=== PATIENT | female | born 1990 | race Caucasian/White ===

== ENCOUNTER → 2016-06-09 | Outpatient (CLI) | payer MEDICAID | LOC: MW.CHOBGYN 15:03 | PROVIDERS: ATTEND Obstetrics & Gynecology | DX: Z32.00 Encounter for pregnancy test, result unknown (principal) | CPT/HCPCS: 81025 ==

== ENCOUNTER → 2016-06-30 | Outpatient (CLI) | payer MEDICAID | LOC: MW.CHOBGYN 09:07 | PROVIDERS: ATTEND Obstetrics & Gynecology | DX: Z34.90 Encounter for supervision of normal pregnancy, unspecified, unspecified trimester (principal) | CPT/HCPCS: 81003; 87480; 87491; 87510; 87591; 87660; G0145 ==

== ENCOUNTER 2017-01-13 07:42 | Inpatient (IN) | payer MEDICAID ==
[2017-01-13] MEDS ORDERED: Docusate Sodium 100 MG Cap PO PRN (08:03)
[2017-01-13] MEDS ORDERED: Acetaminophen 500 MG Tab PO PRN ×2 (08:03)
[2017-01-13] MEDS ORDERED: Ibuprofen 400 MG Tab PO PRN (08:03)
[2017-01-13] MEDS ORDERED: Lanolin 100% Cream 7 GM Tube TOP PRN (08:03)
[2017-01-13] MEDS ORDERED: Benzocaine/Menthol 20%-0.5% Spray 78 GM Cannister TOP PRN (08:03)
[2017-01-13] MEDS ORDERED: oxyCODONE 5 MG Tab PO PRN (08:03)
[2017-01-13] MEDS ORDERED: Witch Hazel Medicated Pads 40/Jar TOP PRN (08:03)
[2017-01-13] MEDS ORDERED: Bisacodyl 10 MG Supp RECTAL PRN (08:03)
--- NOTE | 2017-01-13 08:13 | PCM.LDHP ---
L&D History of Present Illness - General Date of Service: 01/13/17 Admit Problem/Dx: Patient Status Order with Admit Dx/Problem 01/13/17 08:03 Patient Status [ADT] Routine Admission Diagnosis/Problem Admission Diagnosis/Problem Source of Information: Patient History Limitations: Reports: No Limitations - History of Present Illness Improves with: Reports: None Worsens with: Reports: None Associated Symptoms: Reports: N - Related Data Allergies/Adverse Reactions: Allergies Allergy/AdvReac Type Severity Reaction Status Date / Time Penicillins Allergy Anaphylactic Verified 08/20/13 20:50 Shock Home Medications: Home Meds Acetaminophen [Tylenol Extra Strength] 500 mg PO Q4H PRN #1 tab 09/06/13 [Rx] Lanolin [Lansinoh HPA] 40 gm TOP ASDIRECTED PRN #1 crm 09/06/13 [Rx] Past Medical History - Past Health History Medical/Surgical History: Denies 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: Musculoskeletal History: Reports: Fracture Neurological History: Reports: Migraines - Infectious Disease History Infectious Disease History: Reports: Chicken Pox Social & Family History - Family History Cardiac: Reports: Hypertension, [place] Respiratory: Reports: Asthma GI: Reports: Cholelithiasis OBGYN: Reports: Neurological: Reports: Migraines Psychiatric: Reports: Anxiety, Bipolar, Depression Dermatologic: Reports: Eczema Oncologic: Reports: Colon, Pancreatic - Tobacco Use Smoking Status *Q: Never Smoker Second Hand Smoke Exposure: No - Recreational Drug Use Recreational Drug Use: No H&P Review of Systems - Review of Systems: Review Of Systems: See Below General: Reports: No Symptoms HEENT: Reports: No Symptoms Pulmonary: Reports: No Symptoms Cardiovascular: Reports: No Symptoms Gastrointestinal: Reports: No Symptoms Genitourinary: Reports: No Symptoms Musculoskeletal: Reports: No Symptoms Skin: Reports: No Symptoms Psychiatric: Reports: No Symptoms Neurological: Reports: No Symptoms Hematologic/Lymphatic: Reports: No Symptoms Immunologic: Reports: No Symptoms L&D Exam - Exam Exam: See Below - Vital Signs Weight: 70.76 kg - Exam General: Alert, Oriented HEENT: PERRLA, Conjunctiva Clear, EACs Clear, EOMI, Hearing Intact, Mucosa Moist & Levasy, Nares Patent, Normal Nasal Septum, Posterior Pharynx Clear, TMs Clear Neck: Supple, Trachea Midline Lungs: Clear to Auscultation, Normal Respiratory Effort Cardiovascular: Regular Rate, Regular Rhythm GI/Abdominal Exam: Normal Bowel Sounds, Soft, Non-Tender, No Organomegaly, No Distention, No Abnormal Bruit, No Mass, Pelvis Stable Rectal Exam: Normal Exam, Normal Rectal Tone Genitourinary: Normal external exam, Normal bimanual exam, Normal speculum exam Back Exam: Normal Inspection, Full Range of Motion Extremities: Normal Inspection, Normal Range of Motion, Non-Tender, No Pedal Edema, Normal Capillary Refill Skin: Warm, Dry, Intact Neurological: Cranial Nerves Intact, Reflexes Equal Bilateral Psychiatric: Alert, Normal Affect, Normal Mood Problem List Initiated/Reviewed/Updated: Yes Orders Last 24hrs: Active Orders 24 hr Category Date Time Status Patient Status [ADT] Routine ADT 01/13/17 08:03 Ordered May Shower [RC] ASDIRECTED Care 01/13/17 08:03 Ordered Up ad Leticia [RC] ASDIRECTED Care 01/13/17 08:03 Ordered Vital Signs [RC] PER UNIT ROUTINE Care 01/13/17 08:03 Ordered HEMOGLOBIN/HEMATOCRIT,HH [HEME] Timed Lab 01/14/17 05:11 Ordered Acetaminophen [Tylenol Extra Strength] Med 01/13/17 08:03 Ordered 1,000 mg PO Q4H PRN Acetaminophen [Tylenol Extra Strength] Med 01/13/17 08:03 Ordered 500 mg PO Q4H PRN Benzocaine/Menthol [Dermoplast Pain Relief 20%-0.5% Med 01/13/17 08:03 Ordered [place]] 78 gm TOP ASDIRECTED PRN Bisacodyl [Dulcolax] Med 01/13/17 08:03 Ordered 10 mg RECTAL .ONCE PRN Docusate Sodium [Colace] Med 01/13/17 08:03 Ordered 100 mg PO BID PRN Ibuprofen [Motrin] Med 01/13/17 08:03 Ordered 400 mg PO Q4H PRN Ibuprofen [Motrin] Med 01/13/17 08:03 Ordered 800 mg PO Q6H PRN Lanolin [Lansinoh HPA] Med 01/13/17 08:03 Ordered See Dose Instructions TOP ASDIRECTED PRN Witch Kelsey [Tucks] Med 01/13/17 08:03 Ordered 1 pad TOP ASDIRECTED PRN oxyCODONE Med 01/13/17 08:03 Ordered 5 mg PO Q2H PRN Assess Lochia [WOMSER] Per Unit Routine Oth 01/13/17 08:03 Ordered Assess Uterine Involution [WOMSER] Per Unit Routine Oth 01/13/17 08:03 Ordered Peripheral IV Discontinue [OM.PC] Routine Oth 01/13/17 08:03 Ordered Resuscitation Status Routine Resus Stat 01/13/17 08:03 Ordered Medication Orders Acetaminophen (Tylenol Extra Strength) 500 mg PO Q4H PRN PRN Reason: Pain Acetaminophen (Tylenol Extra Strength) 1,000 mg PO Q4H PRN PRN Reason: Pain Benzocaine/Menthol (Dermoplast Pain Relief 20%-0.5% [place]) 78 gm TOP ASDIRECTED PRN PRN Reason: Perineal Comfort Measure Bisacodyl (Dulcolax) 10 mg RECTAL .ONCE PRN PRN Reason: Constipation Docusate Sodium (Colace) 100 mg PO BID PRN PRN Reason: Constipation Emollient Ointment (Lansinoh Hpa) 0 gm TOP ASDIRECTED PRN PRN Reason: Sore Nipples Ibuprofen (Motrin) 400 mg PO Q4H PRN PRN Reason: Pain Ibuprofen (Motrin) 800 mg PO Q6H PRN PRN Reason: Pain Oxycodone HCl (Oxycodone) 5 mg PO Q2H PRN PRN Reason: Pain Witch Kelsey (Tucks) 1 pad TOP ASDIRECTED PRN PRN Reason: comfort care Assessment/Plan Comment:: Pt Have vaginal delivery on route to the hospital
--- NOTE | 2017-01-13 08:29 | OR ---
SURGEON: Warner Marrero MD DATE OF PROCEDURE: DELIVERY NOTE: Ms. Sabillon is para 2-0-1-2. She is 37+ weeks. She is followed in our clinic primarily. She is followed by me. She was seen in the office yesterday and prior to that she was seen in Labor and Delivery and monitored for labor. However, the patient was 3 cm, dilated and her contraction is not irregular and I saw her in the office. She was the same. No contraction. The patient went home yesterday and according to her, she started having regular contraction at 5 o'clock this morning and when she was en route into the hospital, the patient had a vaginal delivery of a female fetus and she also after that delivered the placenta. At the arrival to the hospital, the score to the patient was 8 and 9. I did a pelvic examination. There is no perineal or labial laceration and the patient is not bleeding. It seems to be the estimated blood loss in this is about 250 mL. There was no complication. We will admit the patient and we will provide regular care. PRIMARY SURGEON: SECONDARY SURGEON: DOPE MAINTENANCE WORKER: REASON DOPE MAINTENANCE WORKER WAS NECESSARY: ROLE OF DOPE MAINTENANCE WORKER: CANDICE / JOSR /[id number]
[2017-01-13] MEDS: Ibuprofen 800 MG Tab PO PRN ×2 (11:11→23:18)
--- NOTE | 2017-01-14 07:03 | PCM.DCSUM1 ---
Discharge Summary - Hospital Course Free Text/Narrative:: Discharge home with daughter. Follow up 7-10 days for a check in and 6 weeks for post visit. - Discharge Data Discharge Date: 01/14/17 Discharge Disposition: Home, Self-Care 01 Condition: Good - Discharge Diagnosis/Problem(s) (1) Supervision of normal IUP (intrauterine ) in multigravida SNOMED Code(s): 990059621, 768048775 ICD Code: Z34.80 - ENCOUNTER FOR SUPRVSN OF NORMAL , UNSP TRIMESTER Status: Acute Priority: High Current Visit: Yes Qualifiers: Trimester: third trimester Qualified Code(s): Z34.83 - Encounter for supervision of other normal , third trimester (2) (normal spontaneous vaginal delivery) SNOMED Code(s): 99174470 ICD Code: O80 - ENCOUNTER FOR FULL-TERM UNCOMPLICATED DELIVERY Status: Acute Priority: High Current Visit: Yes (3) Precipitate labor, with delivery SNOMED Code(s): 333687084 ICD Code: O62.3 - PRECIPITATE LABOR Status: Acute Priority: High Current Visit: Yes - Patient Instructions Diet: Usual Diet as Tolerated Activity: As Tolerated, Rest and Relax Today Driving: May Drive Today Showering/Bathing: May Shower Notify Provider of: Fever, Increased Pain, Swelling and Redness, Nausea and/or Vomiting Other/Special Instructions: Discharge home with daughter. Follow up 7-10 days for a check in and 6 weeks for post visit. - Discharge Plan Home Medications: Home Meds Acetaminophen [Tylenol Extra Strength] 500 mg PO Q4H PRN #1 tab 09/06/13 [Rx] Lanolin [Lansinoh HPA] 40 gm TOP ASDIRECTED PRN #1 crm 09/06/13 [Rx] Referrals: [facility] [Outside] Warner Marrero MD [Physician] - 02/24/17 1:30 pm - General Info Date of Service: 01/14/17 Admission Dx/Problem (Free Text: Patient Status Order with Admit Dx/Problem 01/13/17 08:03 Patient Status [ADT] Routine Admission Diagnosis/Problem Admission Diagnosis/Problem Functional Status: Reports: Pain Controlled, Tolerating Diet, Ambulating, Urinating - Review of Systems General: Reports: No Symptoms HEENT: Reports: No Symptoms Pulmonary: Reports: No Symptoms Cardiovascular: Reports: No Symptoms Gastrointestinal: Reports: No Symptoms Genitourinary: Reports: No Symptoms Musculoskeletal: Reports: No Symptoms Skin: Reports: No Symptoms Neurological: Reports: No Symptoms Psychiatric: Reports: No Symptoms - Patient Data Vitals - Most Recent: Last Vital Signs Temp 37.1 C 01/14/17 04:00 Pulse 63 01/14/17 04:00 Resp 16 01/14/17 04:00 BP 111/65 01/14/17 04:00 Pulse Ox 98 01/14/17 04:00 Weight - Most Recent: 70.76 kg Lab Results - Last 24 hrs: Laboratory Results - last 24 hr 01/13/17 01/14/17 Range/Units 08:58 04:40 Hgb 10.3 L (12.0-16.0) g/dL Hct 31.3 L (36.0-46.0) % Blood Type A NEGATIVE Med Orders - Current: Current Medications Acetaminophen (Tylenol Extra Strength) 500 mg PO Q4H PRN PRN Reason: Pain Acetaminophen (Tylenol Extra Strength) 1,000 mg PO Q4H PRN PRN Reason: Pain Benzocaine/Menthol (Dermoplast Pain Relief 20%-0.5% [place]) 78 gm TOP ASDIRECTED PRN PRN Reason: Perineal Comfort Measure Bisacodyl (Dulcolax) 10 mg RECTAL .ONCE PRN PRN Reason: Constipation Docusate Sodium (Colace) 100 mg PO BID PRN PRN Reason: Constipation Emollient Ointment (Lansinoh Hpa) 0 gm TOP ASDIRECTED PRN PRN Reason: Sore Nipples Ibuprofen (Motrin) 400 mg PO Q4H PRN PRN Reason: Pain Ibuprofen (Motrin) 800 mg PO Q6H PRN PRN Reason: Pain Last Admin: 01/13/17 23:18 Dose: 800 mg Oxycodone HCl (Oxycodone) 5 mg PO Q2H PRN PRN Reason: Pain Witch Kelsey (Tucks) 1 pad TOP ASDIRECTED PRN PRN Reason: comfort care - Exam General: Reports: Alert, Oriented, Cooperative, No Acute Distress Lungs: Reports: Normal Respiratory Effort GI/Abdominal Exam: Soft, Non-Tender (Female) Exam: Vaginal Bleeding Rectal (Female) Exam: Deferred Back Exam: Reports: Full Range of Motion Extremities: Normal Range of Motion, Non-Tender, No Pedal Edema, Normal Capillary Refill Skin: Reports: Warm, Dry, Intact Neurological: Reports: No New Focal Deficit, Normal Speech, Normal Tone Psy/Mental Status: Reports: Alert (Sad due to of her mother yesterday. Disc to come to the clinic if she has any thoughts of harming her self. Advised her to f/u 7-10 days to just check in with us on her feelings.), Normal Affect, Normal Mood *Q Meaningful Use (DIS) - VTE *Q VTE Criteria *Q: - Stroke *Q Stroke Criteria *Q: - AMI *Q AMI Criteria *Q:
[2017-01-14 10:14] VITALS: BP 116/78
--- NOTE | 2017-02-26 08:37 | OR ---
SURGEON: Warner Marrero MD DATE OF PROCEDURE: 01/13/2017 AMENDMENT: The fact is this patient delivered en route to the hospital, and she had a vaginal delivery in the car, an uncomplicated vaginal delivery, but when the patient arrived to the hospital, the placenta was delivered by the nurse in the hospital, it was not delivered in the car, so delivery of the placenta is accomplished by the Labor and Delivery nurse, and then I arrived and evaluated the patient, and the rest of the note I dictated previously is valid. CANDICE / JOSR /[id number]
== END 2017-01-14 11:00 | disposition home or self-care (01) | DRG 775 ==
LOC: MW.OBCHECK 07:42 → MW.OB 07:42 → OBSVTOIN 07:43 → MW.OBCHECK 07:43
PROVIDERS: ADMIT Obstetrics & Gynecology; ATTEND Obstetrics & Gynecology
PROC: 10E0XZZ Delivery of Products of Conception, External Approach (ICD-10-PCS; principal; 2017-01-13)
DX: Z39.0 Encounter for care and examination of mother immediately after delivery (principal)
CPT/HCPCS: 36415; 59414; 85014; 85018; 86900; 86901; A9270-GY

== ENCOUNTER 2018-10-05 21:28 | Emergency (ER) | payer MEDICAID, OTHER ==
--- NOTE | 2018-10-05 21:41 | EDM.PDOC ---
ED HPI GENERAL MEDICAL PROBLEM - General Chief Complaint: ENT Problem Stated Complaint: PT HAS SORE THROAT Time Seen by Provider: 10/05/18 21:39 Source of Information: Reports: Patient - History of Present Illness INITIAL COMMENTS - FREE TEXT/NARRATIVE: HISTORY AND PHYSICAL: History of present illness: [Patient presents with sore throat increasing in severity her last 24 hours no muffled voice drilling or trismus some difficulty with solid food no difficulty with liquid ] Review of systems: As per history of present illness and below otherwise all systems reviewed and negative. Past medical history: As per history of present illness and as reviewed below otherwise noncontributory. Surgical history: As per history of present illness and as reviewed below otherwise noncontributory. Social history: No reported history of drug or alcohol abuse. Family history: As per history of present illness and as reviewed below otherwise noncontributory. Physical exam: HEENT: Atraumatic, normocephalic, pupils reactive, negative for conjunctival pallor or scleral icterus, mucous membranes moist, throat clear, neck supple, nontender, trachea midline. Moderate erythema oropharynx white patchy exudates no meningeal signs Lungs: Clear to auscultation, breath sounds equal bilaterally, chest nontender. Heart: S1S2, regular, negative for clicks, rubs, or JVD. Abdomen: Soft, nondistended, nontender. Negative for masses or hepatosplenomegaly. Negative for costovertebral tenderness. Pelvis: Stable nontender. Genitourinary: Deferred. Rectal: Deferred. Extremities: Atraumatic, negative for cords or calf pain. Neurovascular unremarkable. Neuro: Awake, alert, oriented. Cranial nerves II through XII unremarkable. Cerebellum unremarkable. Motor and sensory unremarkable throughout. Exam nonfocal. Diagnostics: [] Therapeutics: [[employer] ] Impression: acute pharyngitis] Definitive disposition and diagnosis as appropriate pending reevaluation and review of above. 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: Musculoskeletal History: Reports: Fracture Neurological History: Reports: Migraines - Infectious Disease History Infectious Disease History: Reports: Chicken Pox Social & Family History - Family History Cardiac: Reports: Hypertension, [place] Respiratory: Reports: Asthma GI: Reports: Cholelithiasis OBGYN: Reports: Neurological: Reports: Migraines Psychiatric: Reports: Anxiety, Bipolar, Depression Dermatologic: Reports: Eczema Oncologic: Reports: Colon, Pancreatic - Caffeine Use Caffeine Use: Reports: Coffee, Soda ED ROS GENERAL - Review of Systems Review Of Systems: See Below ED EXAM, GENERAL - Physical Exam Exam: See Below Departure - Departure Time of Disposition: 21:40 Disposition: Home, Self-Care 01 Condition: Good Clinical Impression: Pharyngitis - Discharge Information Referrals: Valerie Singh PA [Primary Care Provider] - Additional Instructions: The following information is given to patients seen in the emergency department who are being discharged to home. This information is to outline your options for follow-up care. We provide all patients seen in our emergency department with a follow-up referral. The need for follow-up, as well as the timing and circumstances, are variable depending upon the specifics of your emergency department visit. If you don't have a primary care physician on staff, we will provide you with a referral. We always advise you to contact your personal physician following an emergency department visit to inform them of the circumstance of the visit and for follow-up with them and/or the need for any referrals to a consulting specialist. The emergency department will also refer you to a specialist when appropriate. This referral assures that you have the opportunity for follow-up care with a specialist. All of these measure are taken in an effort to provide you with optimal care, which includes your follow-up. Under all circumstances we always encourage you to contact your private physician who remains a resource for coordinating your care. When calling for follow-up care, please make the office aware that this follow-up is from your recent emergency room visit. If for any reason you are refused follow-up, please contact the [facility] emergency department at and asked to speak to the emergency department charge nurse.
[2018-10-05 21:48] VITALS: BP 131/75
== END 2018-10-05 21:45 | disposition home or self-care (01) ==
LOC: MW.ED 21:28
DX: J02.9 Acute pharyngitis, unspecified (principal); Z88.0 Allergy status to penicillin
CPT/HCPCS: 99282

== ENCOUNTER 2018-10-26 19:04 | Emergency (ER) | payer OTHER ==
[2018-10-26 19:17] VITALS: BP 127/88; PULSE 72
[2018-10-26] MEDS ORDERED: Ketorolac 60 MG/2 ML SDV IM ONE (19:19)
--- NOTE | 2018-10-26 19:19 | EDM.PDOC ---
ED HPI GENERAL MEDICAL PROBLEM - General Chief Complaint: Upper Extremity Injury/Pain Stated Complaint: PT HURT LT HAND Time Seen by Provider: 10/26/18 19:11 Source of Information: Reports: Patient History Limitations: Reports: No Limitations - History of Present Illness INITIAL COMMENTS - FREE TEXT/NARRATIVE: HISTORY AND PHYSICAL: History of present illness: Patient is a 28-year-old female presents to the ED today with concern of left hand pain 1 week. Patient states that for one week and felt as if she had a jammed her thumb but she is not sure if she did anything to her thumb. Patient states today she was trying to open a ranch bottle which had slipped and hit this area and has become more painful. Patient states she has been able to move her hand without pain or difficulty but does have pain when she presses over the area at the base of her thumb. Patient denies any prior hand injury or any other symptoms or concerns. Patient denies fever, chills, chest pain, shortness of breath, or cough. Denies headache, neck stiff ness, change in vision, syncope, or near syncope. Denies nausea, vomiting, abdominal pain, diarrhea, constipation, or dysuria. Has not noted any blood in urine or stool. Patient has been eating and drinking appropriately. Review of systems: As per history of present illness and below otherwise all systems reviewed and negative. Past medical history: As per history of present illness and as reviewed below otherwise noncontributory. Surgical history: As per history of present illness and as reviewed below otherwise noncontributory. Social history: See social history for further information Family history: As per history of present illness and as reviewed below otherwise noncontributory. Physical exam: General: Patient is alert, oriented, and in no acute distress. Patient sitting comfortably on exam table. HEENT: Atraumatic, normocephalic, pupils equal and reactive bilaterally, negative for conjunctival pallor or scleral icterus, mucous membranes moist, TMs normal bilaterally, throat clear, neck supple, nontender, trachea midline. No drooling or trismus noted. No meningeal signs. No hot potato voice noted. Lungs: Clear to auscultation, breath sounds equal bilaterally, chest nontender. Heart: S1S2, regular rate and rhythm without overt murmur Abdomen: Soft, nondistended, nontender. Negative for masses or hepatosplenomegaly. Negative for costovertebral tenderness. Pelvis: Stable nontender. Genitourinary: Deferred. Rectal: Deferred. Skin: Intact, warm, dry. No lesions or rashes noted. Extremities:Negative for cords or calf pain. Neurovascular unremarkable. The thenar eminence on the left hand is slightly more edematous than on the right with pain with palpation but nonerythematous or warm to touch. Patient has full range of motion of the left hand wrist and elbow without pain or difficulty. Radial pulses grossly intact of the right upper extremity and capillary refill less than 2 seconds. Neuro: Awake, alert, oriented. Cranial nerves II through XII unremarkable. Cerebellum unremarkable. Motor and sensory unremarkable throughout. Exam nonfocal. Notes: Dr. Doty verbally involved in patient care. Discussed the importance for follow-up with a primary care provider or orthopedic provider. Voices understanding and is agreeable to plan of care. Denies any further questions or concerns at this time. Diagnostics: Hand XR Therapeutics: Toradol, thumb spica placed by nursing staff Prescription: Diclofenac Impression: Left hand pain Plan: 1. Rest, ice, elevate the affected extremity. You can apply ice 15 minutes on, 15 minutes off. 2. Tylenol as directed for pain management or discomfort. Take medication as prescribed 3. Follow up with the primary care provider or orthopedic provider as discussed. Return to the ED as needed and as discussed. Definitive disposition and diagnosis as appropriate pending reevaluation and review of above. left hand Pain Score (Numeric/FACES): 7 - Related Data Allergies Allergy/AdvReac Type Severity Reaction Status Date / Time Penicillins Allergy Anaphylactic Verified 10/26/18 19:18 Shock Home Meds: Home Meds Diclofenac Sodium [Voltaren] 75 mg PO BIDMEALS PRN #10 tab.cr 10/26/18 [Rx] Past Medical History - Past Health History Medical/Surgical History: Denies Medical/Surgical History G[employer]ER History: Reports: Musculoskeletal History: Reports: Fracture Neurological History: Reports: Migraines - Infectious Disease History Infectious Disease History: Reports: Chicken Pox Social & Family History - Family History Family Medical History: Noncontributory Cardiac: Reports: Hypertension, [place] Respiratory: Reports: Asthma GI: Reports: Cholelithiasis OBGYN: Reports: Neurological: Reports: Migraines Psychiatric: Reports: Anxiety, Bipolar, Depression Dermatologic: Reports: Eczema Oncologic: Reports: Colon, Pancreatic - Caffeine Use Caffeine Use: Reports: Coffee, Soda Review of Systems - Review of Systems Review Of Systems: ROS reveals no pertinent complaints other than HPI. ED EXAM, GENERAL - Physical Exam Exam: See Below (See dictation) Course - Vital Signs Last Recorded V/S: Last Vital Signs Temp 36.4 C 10/26/18 19:16 Pulse 72 10/26/18 19:16 Resp 12 10/26/18 19:16 BP 127/88 10/26/18 19:16 Pulse Ox 97 10/26/18 19:16 - Orders/Labs/Meds Orders: Active Orders 24 hr Category Date Time Status DME for Discharge [COMM] Stat Oth 10/26/18 19:26 Ordered Meds: Medications Discontinued Medications Generic Name Dose Route Start Last Admin Trade Name Freq PRN Reason Stop Dose Admin Ketorolac Tromethamine 60 mg 10/26/18 19:19 10/26/18 19:36 Toradol IM 10/26/18 19:20 60 mg ONETIME ONE Administration Departure - Departure Time of Disposition: 19:56 Disposition: Home, Self-Care 01 Clinical Impression: Hand pain, left - Discharge Information Prescriptions: Diclofenac Sodium [Voltaren] 75 mg PO BIDMEALS PRN #10 tab.cr PRN Reason: Pain Referrals: Valerie Singh PA [Primary Care Provider] - Forms: ED Department Discharge Additional Instructions: The following information is given to patients seen in the emergency department who are being discharged to home. This information is to outline your options for follow-up care. We provide all patients seen in our emergency department with a follow-up referral. The need for follow-up, as well as the timing and circumstances, are variable depending upon the specifics of your emergency department visit. If you don't have a primary care physician on staff, we will provide you with a referral. We always advise you to contact your personal physician following an emergency department visit to inform them of the circumstance of the visit and for follow-up with them and/or the need for any referrals to a consulting specialist. The emergency department will also refer you to a specialist when appropriate. This referral assures that you have the opportunity for follow-up care with a specialist. All of these measure are taken in an effort to provide you with optimal care, which includes your follow-up. Under all circumstances we always encourage you to contact your private physician who remains a resource for coordinating your care. When calling for follow-up care, please make the office aware that this follow-up is from your recent emergency room visit. If for any reason you are refused follow-up, please contact the [facility] Emergency Department at and asked to speak to the emergency department charge nurse. [facility] [address] [place] [address] [address] [facility] Special[facility] - Orthopedic [facility] Professional Building [address] [facility], [address] [place] [address] Dr Segura, Orthopedist [facility] [address] [place] [address] Dr Finch - Dr Gale - Dr Ramirez [facility] at [facility] [address] [place] [address] [facility] [address] [place] [address] 1. Rest, ice, elevate the affected extremity. You can apply ice 15 minutes on, 15 minutes off. 2. Tylenol as directed for pain management or discomfort. Take medication as prescribed 3. Follow up with the primary care provider or orthopedic provider as discussed. Return to the ED as needed and as discussed. - My Orders Last 24 Hours: My Active Orders 10/26/18 19:26 DME for Discharge [COMM] Stat - Assessment/Plan Last 24 Hours: My Active Orders 10/26/18 19:26 DME for Discharge [COMM] Stat
--- NOTE | 2018-10-26 19:54 | CR ---
INDICATION: Thenar swelling and pain TECHNIQUE: Three views left hand COMPARISON: None FINDINGS: Bones: Alignment is normal. No fractures or bone lesions. Joint spaces: Unremarkable. Soft tissues: Thenar soft tissue edema. IMPRESSION: Thenar soft tissue edema. Dictated by Kannan Bryant MD @ 10/26/2018 7:52:07 PM Dictated by: Kannan Bryant MD @ 10/26/2018 19:52:11 (Electronically Signed)
== END 2018-10-26 20:20 | disposition home or self-care (01) ==
LOC: MW.ED 19:04
DX: M79.642 Pain in left hand (principal); Z88.0 Allergy status to penicillin
CPT/HCPCS: 73130; 96372; 99283; J1885

== ENCOUNTER 2019-03-17 12:52 | Emergency (ER) | payer MEDICAID, OTHER ==
--- NOTE | 2019-03-17 14:03 | CR ---
Right wrist: 3 views of the right wrist were obtained. Comparison: No previous wrist study. Joint spaces are maintained. No fracture, dislocation or other bony abnormality is seen. Impression: 1. No abnormality is identified on right wrist exam. Diagnostic code #1 This report was dictated in Mountain Standard Time
--- NOTE | 2019-03-17 14:13 | EDM.PDOC ---
ED HPI GENERAL MEDICAL PROBLEM - General Chief Complaint: Upper Extremity Injury/Pain Stated Complaint: RIGHT WRIST PAIN AND LIMITED MOBILITY Time Seen by Provider: 03/17/19 14:10 Source of Information: Reports: Patient - History of Present Illness INITIAL COMMENTS - FREE TEXT/NARRATIVE: HISTORY AND PHYSICAL: History of present illness: [Presents with right wrist pain denies injury or trauma history of carpal tunnel syndrome however exquisite tenderness Phalen's is positive as well as Tinel's she has some lateral pain no redness warmth or swelling at this time she notes that she has had swelling in the past she has been using cock-up splint and NSAIDs and he is considering follow-up with hand specialist or actually arranging appointment for consideration of either steroid injection or carpal tunnel release Fever nausea vomiting chills sweats no injury or trauma] Review of systems: As per history of present illness and below otherwise all systems reviewed and negative. Past medical history: As per history of present illness and as reviewed below otherwise noncontributory. Surgical history: As per history of present illness and as reviewed below otherwise noncontributory. Social history: No reported history of drug or alcohol abuse. Family history: As per history of present illness and as reviewed below otherwise noncontributory. Physical exam: HEENT: Atraumatic, normocephalic, pupils reactive, negative for conjunctival pallor or scleral icterus, mucous membranes moist, throat clear, neck supple, nontender, trachea midline. Lungs: Clear to auscultation, breath sounds equal bilaterally, chest nontender. Heart: S1S2, regular, negative for clicks, rubs, or JVD. Abdomen: Soft, nondistended, nontender. Negative for masses or hepatosplenomegaly. Negative for costovertebral tenderness. Pelvis: Stable nontender. Genitourinary: Deferred. Rectal: Deferred. Extremities: Atraumatic, negative for cords or calf pain. Neurovascular unremarkable. Neuro: Awake, alert, oriented. Cranial nerves II through XII unremarkable. Cerebellum unremarkable. Motor and sensory unremarkable throughout. Exam nonfocal. Diagnostics: [?3 views ] Therapeutics: [Continue previous management tramadol Follow-up with hand specialist as being arranged ] Impression: [carpal tunnel syndrome] Definitive disposition and diagnosis as appropriate pending reevaluation and review of above. 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: Musculoskeletal History: Reports: Fracture Neurological History: Reports: Migraines Psychiatric History: Reports: None Endocrine/Metabolic History: Reports: None Hematologic History: Reports: None Immunologic History: Reports: None Oncologic (Cancer) History: Reports: None Dermatologic History: Reports: None - Infectious Disease History Infectious Disease History: Reports: None - Past Surgical History Head Surgeries/Procedures: Reports: None HEENT Surgical History: Reports: None Cardiovascular Surgical History: Reports: None Respiratory Surgical History: Reports: None GI Surgical History: Reports: None Female Surgical History: Reports: None Endocrine Surgical History: Reports: None Neurological Surgical History: Reports: None Musculoskeletal Surgical History: Reports: None Oncologic Surgical History: Reports: None Dermatological Surgical History: Reports: None Social & Family History - Family History Family Medical History: Noncontributory Cardiac: Reports: Hypertension, [place] Respiratory: Reports: Asthma GI: Reports: Cholelithiasis OBGYN: Reports: Neurological: Reports: Migraines Psychiatric: Reports: Anxiety, Bipolar, Depression Dermatologic: Reports: Eczema Oncologic: Reports: Colon, Pancreatic - Tobacco Use Smoking Status *Q: Never Smoker Second Hand Smoke Exposure: No - Caffeine Use Caffeine Use: Reports: None - Recreational Drug Use Recreational Drug Use: No Review of Systems - Review of Systems Review Of Systems: See Below ED EXAM, GENERAL - Physical Exam Exam: See Below Course - Vital Signs Last Recorded V/S: Last Vital Signs Temp 97.8 F 03/17/19 13:05 Pulse 74 03/17/19 13:05 Resp 18 03/17/19 13:05 BP 129/86 03/17/19 13:05 Pulse Ox 98 03/17/19 13:05 Departure - Departure Time of Disposition: 14:12 Disposition: Home, Self-Care 01 Condition: Good Clinical Impression: Carpal tunnel syndrome - Discharge Information Referrals: Renny Marti MD [Primary Care Provider] - Additional Instructions: The following information is given to patients seen in the emergency department who are being discharged to home. This information is to outline your options for follow-up care. We provide all patients seen in our emergency department with a follow-up referral. The need for follow-up, as well as the timing and circumstances, are variable depending upon the specifics of your emergency department visit. If you don't have a primary care physician on staff, we will provide you with a referral. We always advise you to contact your personal physician following an emergency department visit to inform them of the circumstance of the visit and for follow-up with them and/or the need for any referrals to a consulting specialist. The emergency department will also refer you to a specialist when appropriate. This referral assures that you have the opportunity for follow-up care with a specialist. All of these measure are taken in an effort to provide you with optimal care, which includes your follow-up. Under all circumstances we always encourage you to contact your private physician who remains a resource for coordinating your care. When calling for follow-up care, please make the office aware that this follow-up is from your recent emergency room visit. If for any reason you are refused follow-up, please contact the [facility] emergency department at and asked to speak to the emergency department charge nurse. Sepsis Event Note - Evaluation Sepsis Screening Result: No Definite Risk - Focused Exam Vital Signs: Vital Signs Temp Pulse Resp BP Pulse Ox 03/17/19 13:05 97.8 F 74 18 129/86 98 Date Exam was Performed: 03/17/19 Time Exam was Performed: 14:10
[2019-03-17 14:20] VITALS: BP 102/70; PULSE 71
== END 2019-03-17 14:36 | disposition home or self-care (01) ==
LOC: MW.ED 12:52
DX: G56.01 Carpal tunnel syndrome, right upper limb (principal); Z88.0 Allergy status to penicillin; Z79.899 Other long term (current) drug therapy
CPT/HCPCS: 73110-26-RT; 73110-RT; 99283; 99283-25